=== PATIENT | male | born 1955 | race Caucasian/White ===

== ENCOUNTER 2017-11-21 16:12 | Inpatient (IN) | payer BC ==
[~2017-11-21] VITALS: Ht 182.9 cm; Wt 92.3 kg
--- NOTE | ~2017-11-21 | EC ---
PATIENT:ASHLIE MARSHALL DATE OF SERVICE: 11/21/17 SEX: M MEDICAL RECORD: [id number] DATE OF : [birth year] LOCATION:D.MS [place] AGE OF PATIENT: 62 ADMISSION DATE: 11/21/17 REFERRING PHYSICIAN: INTERPRETING PHYSICIAN: PETRA RIOS MD ECHOCARDIOGRAM REPORT ECHO CHARGES 4 ECHO COMPLETE CLINICAL DIAGNOSIS: PE HX OF ATRIAL FIB/ SEPTAL DEFECT REPAIR X2 ECHOCARDIOGRAPHIC MEASUREMENTS (adult normal given) AC root (d.<3.7cm) 4.6 cm LV Septum d (<1.2 cm> 1.4 cm Valve Excursion 1.8 cm LV Septum (systole) 1.6 cm Left Atria (s.<4.0cm> 4.2 cm LVPW d(<1.2cm) 1.1 cm RV (d.<2.3cm) 6.2 cm LVPW (sytole) 1.5 cm LV diastole(<5.6CM) 5.8 cm MV E-F(>70mm/sec) cm LV systole 4.4 cm LVOT Diameter 2.3 cm MV exc.(>10mm) 1.7 cm Est.ejection fraction (50-75%) % Pericardial Effusion N DOPPLER: LVIT cm/sec A 100 cm/sec E cm/sec LA cm/sec RVSP mmHg LVOT 82 cm/sec AOP1/2T m/s Asc. Ao 96 cm/sec RVOT 95 cm/sec RA cm/sec PA 165 cm/sec AV Gradient Peak 3.66 mmHg AV Mean 1.763mmHg AV Area 3.5 cm MV Gradient Peak 4.67 mmHg MV Mean 2.02 mmHg MV Area cm COMMENTS: Rolling Machine Tender: Radha JAVIER Cumulative Effects Analyst: 1 Dr. Rios TAPE# PACS DATE OF SERVICE: 11/22/2017 Echocardiogram FINDINGS: 1. Left ventricular chamber size is mildly dilated. Left ventricular systolic function is mildly reduced. Overall ejection fraction 40% to 45%. 2. Left atrium is enlarged at 4.2 cm. Right atrium and right ventricle chamber sizes are moderately dilated. 3. Valvular structures have normal structure and motion. ECHOCARDIOGRAM REPORT [id number] ASHLIE MARSHALL 4. Doppler interrogation reveals only mild mitral regurgitation. No other valvular insufficiency or stenosis. 5. No evidence of pericardial effusion or left ventricular thrombus. TRANSINT:[id number] Voice Confirmation ID: [id number] DOCUMENT ID: [id number] PETRA RIOS MD at 1025 CC: [id number] DICTATION DATE: 11/22/17 1258 STAFF READINESS OFFICER: 11/22/17 1328 DIS IN 11/23/17 [place] [id number] [place] [id number]
--- NOTE | ~2017-11-21 | HP ---
PATIENT: ASHLIE CALIX MEDICAL RECORD: [id number] ACCOUNT: [id number] LOCATION:D.MS [address] : [birth year] ADMISSION DATE: 11/21/17 HISTORY AND PHYSICAL EXAMINATION HISTORY OF PRESENT ILLNESS: Mr. Calix is a 62-year-old white male who was seen in the [place] office earlier today complaining of increasing shortness of breath, swelling, cough, has been going on for a couple of weeks. Sent to the Emergency Room for further evaluation. Chest x-ray shows changes compatible with failure, he is in atrial fib, which has been chronic. Has seen Dr. Palomo in the past. He had an elevated D-dimer and CTA reveals pulmonary embolism. He is admitted at this time for PE. He is placed on subQ Lovenox. He has had bilateral leg swelling, left worse than right. PAST MEDICAL HISTORY: Significant for chronic COPD, depression, chronic intermittent atrial fibrillation, tobacco abuse and hypertension. PREVIOUS SURGERIES: Include open heart surgery at age 5 and right hand thumb surgery. ALLERGIES OR INTOLERANCES: None known. HOME MEDICATIONS: Include amlodipine 10 mg a day, sotalol 80 mg b.i.d., lisinopril 20 b.i.d. FAMILY HISTORY: Noncontributory. SOCIAL HISTORY: The patient is single. He works at [employer]. He smokes 1-1/2 to 2 packs per day. Drinks alcohol on a social basis, usually beer. REVIEW OF SYSTEMS: Increasing shortness of breath, swelling, orthopnea over the last few weeks. Denies any palpitations. He denies any nausea or vomiting. No recent significant travel history. He has had some mild weight gain recently, which is probably due to fluid accumulation. Denies any significant weight loss recently. PHYSICAL EXAMINATION: GENERAL: He is in no distress at this time. HEENT: Sclerae nonicteric. Poor dentition. NECK: Soft. HEART: Irregularly irregular with normal rate. LUNGS: With bilateral wheezes. ABDOMEN: Soft. Bilateral edema, left worse than right. NEUROLOGIC: Without any gross focal deficits. IMPRESSION: Pulmonary embolism, chronic atrial fib, congestive heart failure secondary to above, chronic hypertension, tobacco abuse, chronic obstructive pulmonary disease. PLAN: Admit, subQ Lovenox. We will check echo and Dopplers in a.m. We will ask cardiology to see. We will need hematology workup, which can be done as an outpatient. Smoking cessation, we will place a nicotine patch. TRANSINT:[id number] Voice Confirmation ID: [id number] DOCUMENT ID: [id number] HISTORY AND PHYSICAL [id number] ASHLIE CALIX MATTHEW DO at 0849 CC: [id number] DICTATION DATE: 11/21/172154 SUPERVISOR PAINTING DEPARTMENT: 11/21/172226 ADM IN [place] [id number] [place] [id number]
[2017-11-21 17:35] LABS: BASOPHILS 0.2 % (0-2); EOSINOPHILS 0.2 % (0-7); HEMATOCRIT 42.3 % (42.0-54.0); HEMOGLOBIN 14.4 g/dL (13.5-17.5); LYMPHOCYTES 20.5 % (15-50); MEAN PLATELET VOLUME 11.1 fL (7.4-10.4); NEUTROPHILS 63.1 % (40-80); PLATELET COUNT 125 10x3/uL (130-400); RBC 4.65 10x6/uL (4.20-6.10); RDW 14.7 % (11.5-14.5); WBC 4.2 10x3/uL (4.8-10.8)
[2017-11-21 17:49] LABS: ALBUMIN 3.3 g/dL (3.4-5.0); ALKALINE PHOSPHATASE 191 U/L (46-116); ALT (SGPT) 29 U/L (10-68); CALC OSMOLALITY 262 mosm/kg (275-300); CALCIUM 8.6 mg/dL (8.5-10.1); CHLORIDE - SERUM 96 mmol/L (98-107); CREATININE - SERUM 0.8 mg/dL (0.6-1.3); GLUCOSE 97 mg/dL (74-106); POTASSIUM - SERUM 3.6 mmol/L (3.5-5.1); PROTEIN - SERUM 7.3 g/dL (6.4-8.2); SODIUM 132 mmol/L (136-145); UREA NITROGEN 7 mg/dL (7-18); eGFR NON AFRICAN AMERICAN > 90 mL/min (90-120)
[2017-11-21 17:56] LABS: PRO BNP 1894 pg/mL (0-125)
[2017-11-22 00:18] VITALS: BP 153/83; Ht 182.9 cm; Wt 92.3 kg
[2017-11-22 04:48] VITALS: BP 139/80
[2017-11-22 05:46] LABS: BASOPHILS 0.2 % (0-2); EOSINOPHILS 0.2 % (0-7); HEMOGLOBIN 14.2 g/dL (13.5-17.5); IMMATURE GRANULOCYTES 0.2 % (0-5); LYMPHOCYTES 27.3 % (15-50); MCHC 33.8 g/dL (31.0-37.0); MCV 91.7 fL (80.0-100.0); MEAN PLATELET VOLUME 11.2 fL (7.4-10.4); MONOCYTES 16.2 % (2-11); NEUTROPHILS 55.9 % (40-80); PLATELET COUNT 123 10x3/uL (130-400); RBC 4.58 10x6/uL (4.20-6.10); RDW 14.9 % (11.5-14.5); WBC 4.1 10x3/uL (4.8-10.8)
[2017-11-22 06:06] LABS: CALCIUM 8.5 mg/dL (8.5-10.1); CHLORIDE - SERUM 97 mmol/L (98-107); GLUCOSE 91 mg/dL (74-106); SODIUM 133 mmol/L (136-145); eGFR NON AFRICAN AMERICAN 80 mL/min (90-120)
[2017-11-22 06:09] LABS: CALC OSMOLALITY 264 mosm/kg (275-300); POTASSIUM - SERUM 4.4 mmol/L (3.5-5.1); UREA NITROGEN 11 mg/dL (7-18)
[2017-11-22 08:43] VITALS: BP 150/75
[2017-11-22 12:45] VITALS: BP 147/91
[2017-11-22] MEDS ORDERED: PRINIVIL20 MG PO (19:31)
[2017-11-22] MEDS ORDERED: DOXYCYCLINE HY100 M2 PO (19:32)
[2017-11-22] MEDS ORDERED: NORVASC10 MG PO (19:33)
[2017-11-22] MEDS ORDERED: BETAPACE 80 MG80 MG PO (19:35)
[2017-11-22 21:30] VITALS: BP 139/86
[2017-11-23 01:13] VITALS: BP 138/79
[2017-11-23 05:25] VITALS: BP 122/77
[2017-11-23 07:58] VITALS: BP 139/80
[2017-11-23 10:59] LABS: BASOPHILS 0.2 % (0-2); EOSINOPHILS 1.2 % (0-7); HEMATOCRIT 41.5 % (42.0-54.0); HEMOGLOBIN 14.1 g/dL (13.5-17.5); LYMPHOCYTES 31.1 % (15-50); MCH 30.8 pg (26.0-34.0); MCV 90.6 fL (80.0-100.0); MONOCYTES 14.1 % (2-11); NEUTROPHILS 53.4 % (40-80); PLATELET COUNT 119 10x3/uL (130-400); RBC 4.58 10x6/uL (4.20-6.10); RDW 14.8 % (11.5-14.5); WBC 4.1 10x3/uL (4.8-10.8)
[2017-11-23 11:12] LABS: ALBUMIN 2.8 g/dL (3.4-5.0); ALKALINE PHOSPHATASE 176 U/L (46-116); ALT (SGPT) 24 U/L (10-68); BILIRUBIN - TOTAL 0.66 mg/dL (0.2-1.3); CALC OSMOLALITY 266 mosm/kg (275-300); CARBON DIOXIDE 28.8 mmol/L (21.0-32.0); CHLORIDE - SERUM 97 mmol/L (98-107); GLUCOSE 94 mg/dL (74-106); PROTEIN - SERUM 6.9 g/dL (6.4-8.2); SODIUM 134 mmol/L (136-145); UREA NITROGEN 11 mg/dL (7-18); eGFR NON AFRICAN AMERICAN 80 mL/min (90-120)
[2017-11-23 11:13] LABS: POTASSIUM - SERUM 3.1 mmol/L (3.5-5.1)
[2017-11-23 12:26] VITALS: BP 135/81
[2017-11-23] MEDS ORDERED: NICODERM C1 PATCH .1 TRANSDERM (13:11)
[2017-11-23] MEDS ORDERED: FLORAJEN3 CAPS460 MG PO (13:12)
[2017-11-23] MEDS ORDERED: ELIQUIS5 MG PO (13:12)
[2017-11-23] MEDS ORDERED: CHANTIX0.5 MG PO (13:13)
[2017-11-23] MEDS ORDERED: LEVAQUIN750 MG PO (13:13)
== END 2017-11-23 16:37 | disposition home or self-care (01) | DRG 175 ==
LOC: D.ER 16:12 → D.MS 21:40
PROVIDERS: Family Medicine; Physician Assistant
DX: I26.99 Other pulmonary embolism without acute cor pulmonale (principal); J18.1 Lobar pneumonia, unspecified organism; J44.0 Chronic obstructive pulmonary disease with (acute) lower respiratory infection; F17.203 Nicotine dependence unspecified, with withdrawal; E87.1 Hypo-osmolality and hyponatremia; I50.20 Unspecified systolic (congestive) heart failure; I48.0 Paroxysmal atrial fibrillation; R60.9 Edema, unspecified; F32.9 Major depressive disorder, single episode, unspecified

== ENCOUNTER 2018-01-24 17:23 | Inpatient (IN) | payer BC ==
[~2018-01-24] VITALS: Ht 182.9 cm; Wt 92.8 kg
--- NOTE | ~2018-01-24 | EC ---
PATIENT:ASHLIE MARSHALL DATE OF SERVICE: 01/24/18 SEX: M MEDICAL RECORD: [id number] DATE OF : [birth year] LOCATION:D.M2 D.213 AGE OF PATIENT: 62 ADMISSION DATE: 01/24/18 REFERRING PHYSICIAN: INTERPRETING PHYSICIAN: PETRA RIOS MD ECHOCARDIOGRAM REPORT ECHO CHARGES 4 ECHO COMPLETE Date: CLINICAL DIAGNOSIS: CHF ECHOCARDIOGRAPHIC MEASUREMENTS (adult normal given) AC root (d.<3.7cm) 3.7 cm LV Septum d (<1.2 cm> 1.4 cm Valve Excursion 2.7 cm LV Septum (systole) 2.2 cm Left Atria (s.<4.0cm> 5.7 cm LVPW d(<1.2cm) 1.4 cm RV (d.<2.3cm) 3.9 cm LVPW (sytole) 2.2 cm LV diastole(<5.6CM) 5.1 cm MV E-F(>70mm/sec) cm LV systole 3.0 cm LVOT Diameter 2.5 cm MV exc.(>10mm) cm Est.ejection fraction (50-75%) % DOPPLER: LVIT cm/sec A 46.0 cm/sec E 107 cm/sec LA cm/sec RVSP 52.0 mmHg LVOT 83.0 cm/sec AOP1/2T m/s Asc. Ao 84.0 cm/sec RVOT 57.0 cm/sec RA cm/sec PA 170 cm/sec AV Gradient Peak 2.8 mmHg AV Mean 1.5 mmHg AV Area 4.5 cm MV Gradient Peak 4.7 mmHg MV Mean 2.2 mmHg MV Area cm COMMENTS: Street Commissioner: 1 LOLA MONTANADSOE Launch Manager: 1 Dr. Rios TAPE# PACS Pericardial Effusion N DATE OF SERVICE: FINDINGS: 1. Left ventricular chamber size is within normal limits. Left ventricular systolic function is mildly reduced. Overall ejection fraction 40%. 2. Left atrium is markedly enlarged at 5.7 cm. Right atrium and right ventricular chamber sizes are as well severely dilated. 3. Valvular structures have normal structure and motion. 4. Doppler interrogation reveals mild aortic insufficiency, moderate tricuspid regurgitation. No other valvular insufficiency or stenosis, but pulmonary ECHOCARDIOGRAM REPORT [id number] ASHLIE MARSHALL systolic pressure is elevated estimated at 52 mmHg. 5. No evidence of pericardial effusion or left ventricular thrombus. TRANSINT:[id number] Voice Confirmation ID: [id number] DOCUMENT ID: [id number] PETRA RIOS MD at 1056 CC: [id number] DICTATION DATE: 01/25/18 161 FISHER SEAL: 01/25/18 1627 DIS IN 01/29/18 [place] [id number] [place] [id number]
--- NOTE | ~2018-01-24 | HP ---
PATIENT: ASHLIE MARSHALL MEDICAL RECORD: [id number] ACCOUNT: [id number] LOCATION:[address] : [birth year] ADMISSION DATE: 01/24/18 HISTORY AND PHYSICAL EXAMINATION HISTORY OF PRESENT ILLNESS: Mr. Marshall is a 62-year-old white male that presents to the clinic with increasing edema and developing anasarca. He has a known history of heart failure and atrial fib, recently hospitalized a little over month ago for similar type symptoms. He was recently seen in the office and spironolactone was added, but he has failed to improve. Now, has anasarca to the lower abdomen, he is experiencing orthopnea. He is not having any chest pain, but marked dyspnea on exertion. He is admitted at this time for IV diuresis and we will ask his chain offbearer to see him. 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 He also recently diagnosed with a pulmonary embolism and is on anticoagulation. He has a known history of heart disease, hypertension, and tobacco abuse. PAST SURGICAL HISTORY: As above. ALLERGIES: None known. HOME MEDICATIONS: Include amlodipine 10 mg a day, furosemide 20 mg a day, lisinopril 20 mg b.i.d., metoprolol 25 b.i.d., sotalol 80 twice a day, spironolactone 20 twice a day, and Xarelto 20 p.o. daily. FAMILY HISTORY: Significant for cancer, hypertension, and cardiac disease. SOCIAL HISTORY: The patient is a tobacco user. REVIEW OF SYSTEMS: No fever. He has had progressive weight gain, increasing dyspnea with orthopnea, and edema extending up to the lower abdomen. PHYSICAL EXAMINATION: GENERAL: He is in no acute distress, but obviously minimally to moderately ill in appearance. HEART: Irregular regular with II/ murmur. LUNGS: With fine rales in the bases. ABDOMEN: Lower abdomen; revealed anasarca to the lower abdomen. Liver and spleen are not enlarged. He has 4+ edema, which extends up into the scrotum and lower abdomen. NEUROLOGIC: Without any gross focal deficits. IMPRESSION: Congestive heart failure, edema/anasarca. PLAN: Admit. Laney guzmán. Daily BMP. Cardiology consult. See orders for rest of plan. TRANSINT:[id number] Voice Confirmation ID: [id number] DOCUMENT ID: [id number] HISTORY AND PHYSICAL [id number] ASHLIE MARSHALL MATTHEW DO at 1228 CC: [id number] DICTATION DATE: 01/25/18924 JAVA XML DEVELOPER: 01/25/18 1012 DIS IN 01/29/18 [place] [id number] [place] [id number]
[~2018-01-24 17:23] MED LIST: BETAPACE 80 MG80 MG PO; CHANTIX0.5 MG PO; DOXYCYCLINE HY100 M2 PO; ELIQUIS5 MG PO; FLORAJEN3 CAPS460 MG PO; LEVAQUIN750 MG PO; NICODERM C1 PATCH .1 TRANSDERM; NORVASC10 MG PO; PRINIVIL20 MG PO
[2018-01-24 19:49] LABS: BASOPHILS 0.5 % (0-2); EOSINOPHILS 1.4 % (0-7); HEMOGLOBIN 13.5 g/dL (13.5-17.5); IMMATURE GRANULOCYTES 0.2 % (0-5); LYMPHOCYTES 22.1 % (15-50); MCH 30.7 pg (26.0-34.0); MCHC 34.6 g/dL (31.0-37.0); MCV 88.6 fL (80.0-100.0); MEAN PLATELET VOLUME 10.1 fL (7.4-10.4); MONOCYTES 13.2 % (2-11); NEUTROPHILS 62.6 % (40-80); RDW 15.7 % (11.5-14.5); WBC 6.6 10x3/uL (4.8-10.8)
[2018-01-24 19:52] LABS: PLATELET COUNT 236 10x3/uL (130-400)
[2018-01-24 19:56] LABS: ALBUMIN 3.2 g/dL (3.4-5.0); ALKALINE PHOSPHATASE 172 U/L (46-116); ALT (SGPT) 14 U/L (10-68); BILIRUBIN - TOTAL 1.36 mg/dL (0.2-1.3); CALC OSMOLALITY 259 mosm/kg (275-300); CALCIUM 8.6 mg/dL (8.5-10.1); CARBON DIOXIDE 25.3 mmol/L (21.0-32.0); CHLORIDE - SERUM 94 mmol/L (98-107); CKMB 0.5 U/L (0.0-3.6); CREATINE KINASE 24 UL (21-232); CREATININE - SERUM 0.9 mg/dL (0.6-1.3); GLUCOSE 90 mg/dL (74-106); MAGNESIUM - SERUM 1.9 mg/dL (1.8-2.4); POTASSIUM - SERUM 4.4 mmol/L (3.5-5.1); PRO BNP 1067 pg/mL (0-125); SODIUM 130 mmol/L (136-145); UREA NITROGEN 10 mg/dL (7-18); eGFR NON AFRICAN AMERICAN > 90 mL/min (90-120)
[2018-01-24 20:06] LABS: TROPONIN-I < 0.017 ng/mL (0.000-0.060)
[2018-01-25 03:27] VITALS: BP 133/66; BMI 31.8
[2018-01-25 05:18] VITALS: BP 131/68
[2018-01-25 06:26] LABS: CALC OSMOLALITY 252 mosm/kg (275-300); CALCIUM 8.5 mg/dL (8.5-10.1); CARBON DIOXIDE 25.3 mmol/L (21.0-32.0); CHLORIDE - SERUM 95 mmol/L (98-107); CREATININE - SERUM 0.9 mg/dL (0.6-1.3); GLUCOSE 84 mg/dL (74-106); POTASSIUM - SERUM 4.2 mmol/L (3.5-5.1); SODIUM 127 mmol/L (136-145); UREA NITROGEN 11 mg/dL (7-18); eGFR NON AFRICAN AMERICAN > 90 mL/min (90-120)
[2018-01-25 10:52] VITALS: BP 119/63
[2018-01-25 13:23] VITALS: BP 120/60
[2018-01-25 14:08] VITALS: Ht 182.9 cm; Wt 92.8 kg
[2018-01-25] MEDS ORDERED: FUROSEMIDE20 MG PO (14:43)
[2018-01-25] MEDS ORDERED: XARELTO20 MG PO (14:44)
[2018-01-25] MEDS ORDERED: LOPRESSOR25 MG PO (14:46)
[2018-01-25 16:25] VITALS: BP 133/69
[2018-01-25 20:00] VITALS: BP 124/72
[2018-01-26 04:00] VITALS: BP 134/77
[2018-01-26 05:44] LABS: BASOPHILS 0.4 % (0-2); EOSINOPHILS 1.3 % (0-7); HEMATOCRIT 36.8 % (42.0-54.0); HEMOGLOBIN 12.8 g/dL (13.5-17.5); IMMATURE GRANULOCYTES 0.2 % (0-5); LYMPHOCYTES 22.1 % (15-50); MCH 30.3 pg (26.0-34.0); MCHC 34.8 g/dL (31.0-37.0); MCV 87.2 fL (80.0-100.0); MEAN PLATELET VOLUME 9.7 fL (7.4-10.4); MONOCYTES 15.3 % (2-11); NEUTROPHILS 60.7 % (40-80); RBC 4.22 10x6/uL (4.20-6.10); RDW 15.4 % (11.5-14.5)
[2018-01-26 06:07] LABS: PLATELET COUNT 184 10x3/uL (130-400); WBC 4.6 10x3/uL (4.8-10.8)
[2018-01-26 06:15] LABS: CALCIUM 8.6 mg/dL (8.5-10.1); CARBON DIOXIDE 27.8 mmol/L (21.0-32.0); CREATININE - SERUM 1.1 mg/dL (0.6-1.3); POTASSIUM - SERUM 3.8 mmol/L (3.5-5.1)
[2018-01-26 07:59] LABS: APPEARANCE CLEAR (CLEAR); BILIRUBIN NEGATIVE (NEGATIVE); COLOR STRAW (YELLOW); GLUCOSE NEGATIVE (NEGATIVE); KETONE NEGATIVE (NEGATIVE); NITRITE NEGATIVE (NEGATIVE); PROTEIN NEGATIVE (NEGATIVE); UROBILINOGEN NORMAL (NORMAL)
[2018-01-26 08:34] VITALS: BP 152/84
[2018-01-26 11:52] VITALS: BP 113/66
[2018-01-26 16:17] VITALS: BP 132/70
[2018-01-26 20:00] VITALS: BP 138/59
[2018-01-27] VITALS: BP 140/66
[2018-01-27 04:00] VITALS: BP 143/85
[2018-01-27 05:42] LABS: BASOPHILS 0.5 % (0-2); EOSINOPHILS 1.4 % (0-7); HEMATOCRIT 36.7 % (42.0-54.0); HEMOGLOBIN 12.8 g/dL (13.5-17.5); LYMPHOCYTES 26.7 % (15-50); MCH 30.5 pg (26.0-34.0); MCHC 34.9 g/dL (31.0-37.0); MCV 87.6 fL (80.0-100.0); MEAN PLATELET VOLUME 9.7 fL (7.4-10.4); MONOCYTES 16.5 % (2-11); NEUTROPHILS 54.9 % (40-80); PLATELET COUNT 183 10x3/uL (130-400); RBC 4.19 10x6/uL (4.20-6.10); RDW 15.5 % (11.5-14.5); WBC 4.3 10x3/uL (4.8-10.8)
[2018-01-27 06:03] LABS: ANION GAP 13.7 mmol/L (8-16); CALCIUM 8.8 mg/dL (8.5-10.1); CARBON DIOXIDE 29.7 mmol/L (21.0-32.0); CREATININE - SERUM 1.2 mg/dL (0.6-1.3); POTASSIUM - SERUM 3.4 mmol/L (3.5-5.1)
[2018-01-27 07:53] VITALS: BP 122/69
[2018-01-27 11:00] VITALS: BP 116/53
[2018-01-27 16:18] VITALS: BP 119/65
[2018-01-27 21:05] VITALS: BP 129/62
[2018-01-28 01:47] VITALS: BP 117/65
[2018-01-28 05:20] VITALS: BP 115/64
[2018-01-28 05:42] LABS: BASOPHILS 0.4 % (0-2); HEMATOCRIT 36.3 % (42.0-54.0); HEMOGLOBIN 12.5 g/dL (13.5-17.5); LYMPHOCYTES 23.5 % (15-50); MCHC 34.4 g/dL (31.0-37.0); MCV 87.3 fL (80.0-100.0); MEAN PLATELET VOLUME 9.7 fL (7.4-10.4); MONOCYTES 15.9 % (2-11); NEUTROPHILS 58.2 % (40-80); PLATELET COUNT 184 10x3/uL (130-400); RBC 4.16 10x6/uL (4.20-6.10); RDW 15.2 % (11.5-14.5); WBC 4.5 10x3/uL (4.8-10.8)
[2018-01-28 05:56] LABS: ANION GAP 11.1 mmol/L (8-16); CALCIUM 8.6 mg/dL (8.5-10.1); CARBON DIOXIDE 32.3 mmol/L (21.0-32.0); CREATININE - SERUM 1.1 mg/dL (0.6-1.3); POTASSIUM - SERUM 3.4 mmol/L (3.5-5.1)
[2018-01-28 07:34] VITALS: BP 126/58
[2018-01-28 11:00] VITALS: BP 122/61
[2018-01-28 15:13] VITALS: BP 131/66
[2018-01-28 20:00] VITALS: BP 114/54
[2018-01-29 04:00] VITALS: BP 128/76
[2018-01-29 06:01] LABS: BASOPHILS 0.5 % (0-2); EOSINOPHILS 2.3 % (0-7); HEMATOCRIT 37.3 % (42.0-54.0); HEMOGLOBIN 12.8 g/dL (13.5-17.5); LYMPHOCYTES 24.4 % (15-50); MCH 30.3 pg (26.0-34.0); MCHC 34.3 g/dL (31.0-37.0); MCV 88.4 fL (80.0-100.0); MEAN PLATELET VOLUME 9.4 fL (7.4-10.4); MONOCYTES 21.9 % (2-11); NEUTROPHILS 50.9 % (40-80); PLATELET COUNT 179 10x3/uL (130-400); RBC 4.22 10x6/uL (4.20-6.10); RDW 15.4 % (11.5-14.5); WBC 4.4 10x3/uL (4.8-10.8)
[2018-01-29 06:08] LABS: CALCIUM 8.6 mg/dL (8.5-10.1); CARBON DIOXIDE 33.8 mmol/L (21.0-32.0); CREATININE - SERUM 1.3 mg/dL (0.6-1.3); POTASSIUM - SERUM 3.8 mmol/L (3.5-5.1)
[2018-01-29 07:35] VITALS: BP 129/77
[2018-01-29] MEDS ORDERED: BUMEX2 MG PO (10:16)
[2018-01-29] MEDS ORDERED: ALDACTONE25 MG PO (10:16)
[2018-01-29 11:16] VITALS: BP 130/56
== END 2018-01-29 18:10 | disposition home or self-care (01) | DRG 292 ==
LOC: D.M2 17:23
PROVIDERS: Family Medicine; Internal Medicine Nephrology
DX: I11.0 Hypertensive heart disease with heart failure (principal); E87.1 Hypo-osmolality and hyponatremia; F17.203 Nicotine dependence unspecified, with withdrawal; I50.43 Acute on chronic combined systolic (congestive) and diastolic (congestive) heart failure; I48.0 Paroxysmal atrial fibrillation; Z79.01 Long term (current) use of anticoagulants; Z86.711 Personal history of pulmonary embolism; E78.5 Hyperlipidemia, unspecified; E11.9 Type 2 diabetes mellitus without complications; R74.8 Abnormal levels of other serum enzymes

== ENCOUNTER 2018-03-12 11:47 | Emergency (ER) | payer BC ==
[2018-01-25 14:08] VITALS: BMI 31.7
[~2018-03-12 11:47] MED LIST changes: +ALDACTONE25 MG PO; +BUMEX2 MG PO; +FUROSEMIDE20 MG PO; +LOPRESSOR25 MG PO; +XARELTO20 MG PO
[2018-03-12 12:20] LABS: BASOPHILS 0.5 % (0-2); EOSINOPHILS 1.8 % (0-7); HEMATOCRIT 36.7 % (42.0-54.0); IMMATURE GRANULOCYTES 0.2 % (0-5); LYMPHOCYTES 24.4 % (15-50); MCH 30.8 pg (26.0-34.0); MCHC 35.4 g/dL (31.0-37.0); MEAN PLATELET VOLUME 9.4 fL (7.4-10.4); MONOCYTES 15.3 % (2-11); NEUTROPHILS 57.8 % (40-80); PLATELET COUNT 208 10x3/uL (130-400); RBC 4.22 10x6/uL (4.20-6.10); RDW 15.9 % (11.5-14.5); WBC 6.2 10x3/uL (4.8-10.8)
[2018-03-12 12:37] LABS: ALBUMIN 3.3 g/dL (3.4-5.0); ALKALINE PHOSPHATASE 158 U/L (46-116); ALT (SGPT) 15 U/L (10-68); CALC OSMOLALITY 259 mosm/kg (275-300); CALCIUM 8.7 mg/dL (8.5-10.1); CARBON DIOXIDE 25.1 mmol/L (21.0-32.0); CHLORIDE - SERUM 96 mmol/L (98-107); GLUCOSE 99 mg/dL (74-106); PROTEIN - SERUM 8.1 g/dL (6.4-8.2); SODIUM 129 mmol/L (136-145); UREA NITROGEN 15 mg/dL (7-18); eGFR NON AFRICAN AMERICAN 80 mL/min (90-120)
[2018-03-12 12:49] LABS: CKMB 0.4 U/L (0.0-3.6); CREATINE KINASE 35 UL (21-232)
[2018-03-12 12:50] LABS: TROPONIN-I < 0.017 ng/mL (0.000-0.060)
== END 2018-03-12 16:12 | disposition home or self-care (01) ==
LOC: D.ER 11:47
PROVIDERS: Family Medicine
DX: J81.0 Acute pulmonary edema (principal); I50.9 Heart failure, unspecified; E11.9 Type 2 diabetes mellitus without complications; I48.91 Unspecified atrial fibrillation; I45.10 Unspecified right bundle-branch block

== ENCOUNTER 2018-03-29 12:03 | Inpatient (IN) | payer BC ==
[~2018-03-29] VITALS: Ht 182.9 cm; Wt 94.5 kg
--- NOTE | ~2018-03-29 | EC ---
PATIENT:ASHLIE MARSHALL DATE OF SERVICE: 03/29/18 SEX: M MEDICAL RECORD: [id number] DATE OF : 53 LOCATION:D.M2 D.211 AGE OF PATIENT: 62 ADMISSION DATE: 03/29/18 REFERRING PHYSICIAN: INTERPRETING PHYSICIAN: PETRA RIOS MD ECHOCARDIOGRAM REPORT ECHO CHARGES 5 ECHO LIMITED Date: 04/02 1 DOPPLER ECHO COLOR FLOW 2 DOPPLER ECHO PULSE CLINICAL DIAGNOSIS: CHF ECHOCARDIOGRAPHIC MEASUREMENTS (adult normal given) AC root (d.<3.7cm) 0 cm LV Septum d (<1.2 cm> 0 cm Valve Excursion 0 cm LV Septum (systole) 0 cm Left Atria (s.<4.0cm> 0 cm LVPW d(<1.2cm) 0 cm RV (d.<2.3cm) 0 cm LVPW (sytole) 0 cm LV diastole(<5.6CM) 0 cm MV E-F(>70mm/sec) 0 cm LV systole 0 cm LVOT Diameter 0 cm MV exc.(>10mm) 0 cm Est.ejection fraction (50-75%) % DOPPLER: LVIT cm/sec A 0 cm/sec E 0 cm/sec LA 0 cm/sec RVSP 46.2 mmHg LVOT 0 cm/sec AOP1/2T 0 m/s Asc. Ao 0 cm/sec RVOT 0 cm/sec RA 0 cm/sec PA 0 cm/sec AV Gradient Peak 0 mmHg AV Mean 0 mmHg AV Area 0 cm MV Gradient Peak 0 mmHg MV Mean 0 mmHg MV Area 0 cm COMMENTS: LIMITED STUDY (2-D,COLOR,DOPPLER) COMPLETE ECHO DONE ON 03/30/18 Blindstitch Machine Operator: Juanjo LARAOE Desktop Analyst: 1 Dr. Rios TAPE# PACS Pericardial Effusion N DATE OF SERVICE: 04/02/2018 Limited echo for ejection fraction. FINDINGS: Left ventricular chamber size is within normal limits. Left ventricular systolic function is mildly reduced, overall ejection fraction 40% to 45%. This is unchanged from previous echocardiogram. TRANSINT:[id number] Voice Confirmation ID: [id number] DOCUMENT ID: [id number] ECHOCARDIOGRAM REPORT [id number] ROLANDOASHLIE PETRA RIOS MD at 5133 CC: [id number] DICTATION DATE: 04/03/18 1013 EVP MANAGING DIRECTOR: 04/03/18 1212 DIS IN 04/06/18 [place] [id number] [place] [id number]
--- NOTE | ~2018-03-29 | CN ---
PATIENT NAME:AHSLIE MARSHALL MEDICAL RECORD: [id number] : 53 LOCATION:. D.2118 ADMIT DATE: 03/29/18 ACCOUNT: [id number] CONSULTING PHYSICIAN: PETRA IRVIN MD REFERRING PHYSICIAN: LYNETTE HARRIS DO DATE OF CONSULTATION: 04/02/2018 ADMITTING DIAGNOSES: 1. Congestive heart failure, chronic systolic dysfunction, chronic diastolic dysfunction. 2. Atrial fibrillation. 3. Hypertension. 4. Xarelto anticoagulation. HISTORY OF PRESENT ILLNESS: Mr. Valera has a history of a mild cardiomyopathy with ejection fraction in the 40% range along with diastolic dysfunction, who presents with anasarca and fluid overload. He is on a Lasix drip. He had presented approximately a month and a half ago with similar. He was placed on dobutamine and Lasix and had a good diuresis. He has a history of atrial fibrillation. He is rate controlled with sotalol, but the atrial fibrillation appears to be chronic at this point. He also has hypertension for which he is on lisinopril. He is currently with a systolic blood pressure in the 100-110 range, heart rate in the 70 range with atrial fibrillation. Creatinine is 1.1. BNP is elevated at 2600. PHYSICAL EXAMINATION: GENERAL APPEARANCE: Well-nourished, well-developed, appears stated age. Level of distress, comfortable. PSYCHIATRIC: Mental status, alert, normal affect. Orientation, oriented to time, place and person. EYES: Lids and conjunctiva, noninjected. No discharge, no pallor. ENT: Lips, teeth, gums, normal dentition. Oropharynx, no cyanosis, no pallor. NECK: Carotid arteries, bilateral normal upstroke, no bruits, no thrills. JUGULAR VEINS: No jugular venous pressure or distention. CERVICAL LYMPH NODES: Nontender, nonenlarged. THYROID: Not enlarged. Nontender. No nodules. LUNGS: Respiratory effort, unlabored. CHEST: Normal curvature. No thoracic deformity. No chest wall tenderness. Percussion, resonant. Auscultation, clear. No wheezes, no rales, no rhonchi. CARDIOVASCULAR: Precordial exam, nondisplaced. No heaves or pericardial thrills. Rate and rhythm, regular. Heart sounds, normal S1, normal S2. No S3, no gallop, no rub. Systolic murmur, not heard. Diastolic murmur, not heard. EXTREMITIES: No cyanosis, no edema. Peripheral pulses, full and equal in all extremities, except as noted. No bruits appreciated. ABDOMEN: Soft, nondistended. Normal aorta. No bruit. Nontender. No masses. Liver, nontender, no hepatomegaly. Spleen, nontender, no splenomegaly. MUSCULOSKELETAL: No joint tenderness. No joint swelling. No erythema. NEUROLOGICAL: Normal gait, normal strength, normal tone. SKIN: Warm and dry. OVERALL IMPRESSION: Anasarca, fluid overload, chronic systolic dysfunction as well as diastolic dysfunction. We will place him back on dobutamine as this has worked in the past in conjunction with the Lasix drip and we will follow along with you. CONSULT REPORT [id number] ASHLIE MARSHALL TRANSINT:[id number] Voice Confirmation ID: [id number] DOCUMENT ID: [id number] PETRA IRVIN MD at 1403 CC: [id number] DICTATION DATE: 04/02/18 1102 LEAD NITRATE PROCESSOR: 04/02/18 1512 DIS IN 04/06/18 [facility] [address] [place] [address]
--- NOTE | ~2018-03-29 | EC ---
PATIENT:ASHLIE MARSHALL DATE OF SERVICE: 03/29/18 SEX: M MEDICAL RECORD: [id number] DATE OF : 53 LOCATION:D.M2 D.211 AGE OF PATIENT: 62 ADMISSION DATE: 03/29/18 REFERRING PHYSICIAN: INTERPRETING PHYSICIAN: PETRA RIOS MD ECHOCARDIOGRAM REPORT ECHO CHARGES 4 ECHO COMPLETE Date: 03/30 CLINICAL DIAGNOSIS: DYSPNEA/ANASARCA, HX CAD/CABG ECHOCARDIOGRAPHIC MEASUREMENTS (adult normal given) AC root (d.<3.7cm) 5.1 cm LV Septum d (<1.2 cm> 1.5 cm Valve Excursion 2.6 cm LV Septum (systole) 1.9 cm Left Atria (s.<4.0cm> 5.1 cm LVPW d(<1.2cm) 1.9 cm RV (d.<2.3cm) 7.1 cm LVPW (sytole) 2.0 cm LV diastole(<5.6CM) 5.9 cm MV E-F(>70mm/sec) cm LV systole 4.3 cm LVOT Diameter 2.4 cm MV exc.(>10mm) cm Est.ejection fraction (50-75%) % DOPPLER: LVIT cm/sec A 52.0 cm/sec E 112 cm/sec LA cm/sec RVSP 45 mmHg LVOT 82 cm/sec AOP1/2T m/s Asc. Ao 106 cm/sec RVOT cm/sec RA cm/sec PA 189 cm/sec AV Gradient Peak 4.49 mmHg AV Mean 2.40 mmHg AV Area 3.6 cm MV Gradient Peak 9.24 mmHg MV Mean 3.09 mmHg MV Area cm COMMENTS: Electronic Funds Transfer Coordinator: Radha JAVIER Skoog Patching Machine Operator: 1 Dr. Rios TAPE# Pericardial Effusion N DATE OF SERVICE: 03/30/2018 PROCEDURE: Echocardiogram. FINDINGS: 1. Left ventricular chamber size is within normal limits. Left ventricular systolic function is normal. Overall ejection fraction estimated at 60%. 2. Left atrium, right atrium, and right ventricle chamber sizes are dilated. Left atrium measures 5.1 cm. 3. Valvular structures have normal structure and motion. ECHOCARDIOGRAM REPORT [id number] ASHLIE MARSHALL 4. Doppler interrogation reveals mild to moderate aortic insufficiency, moderate tricuspid regurgitation, no other valvular insufficiency or stenosis. Pulmonary systolic pressure is estimated at 45 mmHg. 5. No evidence of pericardial effusion or left ventricular thrombus. TRANSINT:[id number] Voice Confirmation ID: [id number] DOCUMENT ID: [id number] PETRA RIOS MD at 0847 CC: [id number] DICTATION DATE: 03/30/18 1248 PENCILLER: 03/30/18 1254 ADM IN [facility] [address] [place] [address]
[2018-03-29] MEDS ORDERED: FUROSEMIDE40 MG PO (14:55)
[2018-03-29 15:04] VITALS: BP 133/76; BMI 31.8
[2018-03-29] MEDS ORDERED: K-DUR20 MEQ PO (15:19)
[2018-03-29] MEDS ORDERED: LOPRESSOR25 MG PO (15:19)
[2018-03-29] MEDS ORDERED: NORVASC10 MG PO (15:19)
[2018-03-29 15:46] VITALS: BP 133/76
[2018-03-29 16:38] LABS: BASOPHILS 0.5 % (0-2); EOSINOPHILS 2.6 % (0-7); HEMATOCRIT 37.3 % (42.0-54.0); HEMOGLOBIN 13.1 g/dL (13.5-17.5); IMMATURE GRANULOCYTES 0.2 % (0-5); MCH 30.5 pg (26.0-34.0); MCHC 35.1 g/dL (31.0-37.0); MCV 86.9 fL (80.0-100.0); MEAN PLATELET VOLUME 9.7 fL (7.4-10.4); MONOCYTES 13.9 % (2-11); NEUTROPHILS 56.8 % (40-80); PLATELET COUNT 220 10x3/uL (130-400); RBC 4.29 10x6/uL (4.20-6.10); RDW 15.5 % (11.5-14.5); WBC 6.6 10x3/uL (4.8-10.8)
[2018-03-29 17:17] LABS: ALBUMIN 3.3 g/dL (3.4-5.0); ALKALINE PHOSPHATASE 147 U/L (46-116); ALT (SGPT) 11 U/L (10-68); BILIRUBIN - TOTAL 1.08 mg/dL (0.2-1.3); CALC OSMOLALITY 269 mosm/kg (275-300); CALCIUM 8.9 mg/dL (8.5-10.1); CHLORIDE - SERUM 99 mmol/L (98-107); CKMB 0.5 U/L (0.0-3.6); CREATINE KINASE 39 UL (21-232); CREATININE - SERUM 1.1 mg/dL (0.6-1.3); GLUCOSE 89 mg/dL (74-106); POTASSIUM - SERUM 4.2 mmol/L (3.5-5.1); PRO BNP 1583 pg/mL (0-125); PROTEIN - SERUM 8.2 g/dL (6.4-8.2); SODIUM 134 mmol/L (136-145); TROPONIN-I < 0.017 ng/mL (0.000-0.060); UREA NITROGEN 20 mg/dL (7-18); eGFR NON AFRICAN AMERICAN 72 mL/min (90-120)
[2018-03-29 17:32] LABS: CKMB 0.5 U/L (0.0-3.6); CREATINE KINASE 38 UL (21-232)
[2018-03-29 17:35] LABS: TROPONIN-I < 0.017 ng/mL (0.000-0.060)
[2018-03-29 19:43] VITALS: BP 116/65
[2018-03-29 20:21] LABS: APPEARANCE CLEAR (CLEAR); BILIRUBIN NEGATIVE (NEGATIVE); COLOR YELLOW (YELLOW); GLUCOSE NEGATIVE (NEGATIVE); KETONE NEGATIVE (NEGATIVE); NITRITE NEGATIVE (NEGATIVE); PROTEIN NEGATIVE (NEGATIVE); UROBILINOGEN NORMAL (NORMAL)
[2018-03-29 23:10] LABS: CKMB 0.6 U/L (0.0-3.6); CREATINE KINASE 38 UL (21-232); TROPONIN-I < 0.017 ng/mL (0.000-0.060)
[2018-03-30 00:51] VITALS: BP 124/60
[2018-03-30 04:53] VITALS: BP 109/70
[2018-03-30 06:38] LABS: BASOPHILS 0.4 % (0-2); EOSINOPHILS 2.9 % (0-7); HEMATOCRIT 36.1 % (42.0-54.0); HEMOGLOBIN 12.6 g/dL (13.5-17.5); IMMATURE GRANULOCYTES 0.2 % (0-5); LYMPHOCYTES 24.8 % (15-50); MCH 30.4 pg (26.0-34.0); MCHC 34.9 g/dL (31.0-37.0); MCV 87.2 fL (80.0-100.0); MEAN PLATELET VOLUME 9.8 fL (7.4-10.4); MONOCYTES 15.3 % (2-11); NEUTROPHILS 56.4 % (40-80); PLATELET COUNT 229 10x3/uL (130-400); RBC 4.14 10x6/uL (4.20-6.10); RDW 15.7 % (11.5-14.5); WBC 5.2 10x3/uL (4.8-10.8)
[2018-03-30 07:14] LABS: ALBUMIN 3.1 g/dL (3.4-5.0); ALKALINE PHOSPHATASE 139 U/L (46-116); ALT (SGPT) 11 U/L (10-68); BILIRUBIN - TOTAL 0.95 mg/dL (0.2-1.3); CALC OSMOLALITY 270 mosm/kg (275-300); CALCIUM 8.8 mg/dL (8.5-10.1); CARBON DIOXIDE 26.5 mmol/L (21.0-32.0); CHLORIDE - SERUM 97 mmol/L (98-107); CKMB 0.3 U/L (0.0-3.6); CREATINE KINASE 34 UL (21-232); CREATININE - SERUM 1.1 mg/dL (0.6-1.3); GLUCOSE 86 mg/dL (74-106); MAGNESIUM - SERUM 1.9 mg/dL (1.8-2.4); POTASSIUM - SERUM 4.3 mmol/L (3.5-5.1); PROTEIN - SERUM 7.6 g/dL (6.4-8.2); SODIUM 135 mmol/L (136-145); UREA NITROGEN 19 mg/dL (7-18); eGFR NON AFRICAN AMERICAN 72 mL/min (90-120)
[2018-03-30 07:18] LABS: TROPONIN-I < 0.017 ng/mL (0.000-0.060)
[2018-03-30 08:50] VITALS: BP 109/68
[2018-03-30 12:03] VITALS: BP 103/61
[2018-03-30 12:41] VITALS: Ht 182.9 cm; Wt 94.5 kg
[2018-03-30 16:56] VITALS: BP 114/64
[2018-03-30 20:17] VITALS: BP 114/77
[2018-03-31 00:57] VITALS: BP 111/62
[2018-03-31 04:28] VITALS: BP 118/69
[2018-03-31 05:54] LABS: BASOPHILS 0.4 % (0-2); EOSINOPHILS 2.9 % (0-7); HEMATOCRIT 34.2 % (42.0-54.0); HEMOGLOBIN 11.9 g/dL (13.5-17.5); IMMATURE GRANULOCYTES 0.2 % (0-5); LYMPHOCYTES 28.4 % (15-50); MCH 30.4 pg (26.0-34.0); MCHC 34.8 g/dL (31.0-37.0); MCV 87.2 fL (80.0-100.0); MEAN PLATELET VOLUME 10.1 fL (7.4-10.4); MONOCYTES 18.9 % (2-11); NEUTROPHILS 49.2 % (40-80); PLATELET COUNT 214 10x3/uL (130-400); RBC 3.92 10x6/uL (4.20-6.10); RDW 15.6 % (11.5-14.5); WBC 4.8 10x3/uL (4.8-10.8)
[2018-03-31 06:30] LABS: ANION GAP 12.1 mmol/L (8-16); BILIRUBIN - TOTAL 0.8 mg/dL (0.2-1.3); CALCIUM 8.7 mg/dL (8.5-10.1); CARBON DIOXIDE 28.4 mmol/L (21.0-32.0); CREATININE - SERUM 1.1 mg/dL (0.6-1.3); MAGNESIUM - SERUM 1.9 mg/dL (1.8-2.4); PROTEIN - SERUM 7.5 g/dL (6.4-8.2)
[2018-03-31 06:33] LABS: POTASSIUM - SERUM 3.5 mmol/L (3.5-5.1)
[2018-03-31 09:01] VITALS: BP 129/61
[2018-03-31 13:30] VITALS: BP 105/66
[2018-03-31 20:33] VITALS: BP 133/68
[2018-04-01 01:35] VITALS: BP 108/65
[2018-04-01 04:57] LABS: BASOPHILS 0.6 % (0-2); EOSINOPHILS 3.3 % (0-7); HEMATOCRIT 34.6 % (42.0-54.0); HEMOGLOBIN 11.9 g/dL (13.5-17.5); LYMPHOCYTES 29.2 % (15-50); MCH 30.1 pg (26.0-34.0); MCHC 34.4 g/dL (31.0-37.0); MCV 87.6 fL (80.0-100.0); MEAN PLATELET VOLUME 9.9 fL (7.4-10.4); MONOCYTES 18.4 % (2-11); NEUTROPHILS 48.5 % (40-80); PLATELET COUNT 214 10x3/uL (130-400); RBC 3.95 10x6/uL (4.20-6.10); RDW 15.3 % (11.5-14.5); WBC 4.9 10x3/uL (4.8-10.8)
[2018-04-01 05:50] VITALS: BP 117/70
[2018-04-01 06:30] LABS: ANION GAP 11.6 mmol/L (8-16); BILIRUBIN - TOTAL 0.67 mg/dL (0.2-1.3); CALCIUM 8.9 mg/dL (8.5-10.1); CARBON DIOXIDE 31.5 mmol/L (21.0-32.0); CREATININE - SERUM 1.2 mg/dL (0.6-1.3); POTASSIUM - SERUM 4.1 mmol/L (3.5-5.1); PROTEIN - SERUM 7.8 g/dL (6.4-8.2)
[2018-04-01 08:38] VITALS: BP 110/73
[2018-04-01 11:21] VITALS: BP 106/64
[2018-04-01 16:34] VITALS: BP 114/77
[2018-04-01 20:02] VITALS: BP 127/61
[2018-04-02] VITALS: BP 109/59
[2018-04-02 04:00] VITALS: BP 112/63
[2018-04-02 06:07] LABS: BASOPHILS 0.4 % (0-2); EOSINOPHILS 3.2 % (0-7); HEMATOCRIT 33.9 % (42.0-54.0); HEMOGLOBIN 11.5 g/dL (13.5-17.5); IMMATURE GRANULOCYTES 0.2 % (0-5); LYMPHOCYTES 26.2 % (15-50); MCH 29.9 pg (26.0-34.0); MCHC 33.9 g/dL (31.0-37.0); MCV 88.1 fL (80.0-100.0); PLATELET COUNT 213 10x3/uL (130-400); RBC 3.85 10x6/uL (4.20-6.10); RDW 15.5 % (11.5-14.5)
[2018-04-02 06:43] LABS: BILIRUBIN - TOTAL 0.69 mg/dL (0.2-1.3); CALCIUM 9.1 mg/dL (8.5-10.1); CARBON DIOXIDE 32.1 mmol/L (21.0-32.0); CREATININE - SERUM 1.1 mg/dL (0.6-1.3); MAGNESIUM - SERUM 2.1 mg/dL (1.8-2.4); POTASSIUM - SERUM 4.1 mmol/L (3.5-5.1); PROTEIN - SERUM 7.7 g/dL (6.4-8.2)
[2018-04-02 08:15] VITALS: BP 114/58
[2018-04-02 11:21] VITALS: BP 105/47
[2018-04-02 15:19] VITALS: BP 132/65
[2018-04-02 20:00] VITALS: BP 118/60
[2018-04-03] VITALS (7 sets, daily range): BP systolic 114–188; BP diastolic 50–71
[2018-04-03 05:16] LABS: BASOPHILS 0.6 % (0-2); EOSINOPHILS 2.6 % (0-7); HEMATOCRIT 34.8 % (42.0-54.0); HEMOGLOBIN 12.1 g/dL (13.5-17.5); IMMATURE GRANULOCYTES 0.2 % (0-5); LYMPHOCYTES 26.7 % (15-50); MCH 30.6 pg (26.0-34.0); MCHC 34.8 g/dL (31.0-37.0); MCV 87.9 fL (80.0-100.0); MEAN PLATELET VOLUME 9.8 fL (7.4-10.4); MONOCYTES 15.7 % (2-11); NEUTROPHILS 54.2 % (40-80); PLATELET COUNT 214 10x3/uL (130-400); RBC 3.96 10x6/uL (4.20-6.10); RDW 15.5 % (11.5-14.5); WBC 4.9 10x3/uL (4.8-10.8)
[2018-04-03 05:37] LABS: ALBUMIN 3.3 g/dL (3.4-5.0); ANION GAP 10.8 mmol/L (8-16); BILIRUBIN - TOTAL 0.7 mg/dL (0.2-1.3); CALCIUM 9.1 mg/dL (8.5-10.1); CARBON DIOXIDE 33.3 mmol/L (21.0-32.0); CREATININE - SERUM 1.1 mg/dL (0.6-1.3); MAGNESIUM - SERUM 2.3 mg/dL (1.8-2.4); POTASSIUM - SERUM 4.1 mmol/L (3.5-5.1); PROTEIN - SERUM 8.1 g/dL (6.4-8.2)
[2018-04-04] VITALS: BP 109/59
[2018-04-04 04:00] VITALS: BP 119/66
[2018-04-04 06:13] LABS: BASOPHILS 0.6 % (0-2); EOSINOPHILS 3.2 % (0-7); HEMATOCRIT 35.1 % (42.0-54.0); HEMOGLOBIN 12.1 g/dL (13.5-17.5); IMMATURE GRANULOCYTES 0.2 % (0-5); MCH 30.6 pg (26.0-34.0); MCHC 34.5 g/dL (31.0-37.0); MCV 88.6 fL (80.0-100.0); MEAN PLATELET VOLUME 9.7 fL (7.4-10.4); MONOCYTES 13.4 % (2-11); NEUTROPHILS 52.6 % (40-80); PLATELET COUNT 195 10x3/uL (130-400); RBC 3.96 10x6/uL (4.20-6.10); RDW 15.4 % (11.5-14.5); WBC 4.7 10x3/uL (4.8-10.8)
[2018-04-04 07:06] LABS: ANION GAP 10.9 mmol/L (8-16); CALCIUM 9.3 mg/dL (8.5-10.1); CARBON DIOXIDE 33.2 mmol/L (21.0-32.0); CREATININE - SERUM 1.3 mg/dL (0.6-1.3); POTASSIUM - SERUM 4.1 mmol/L (3.5-5.1)
[2018-04-04 08:11] VITALS: BP 128/56
[2018-04-04 11:40] VITALS: BP 116/55
[2018-04-04 15:51] VITALS: BP 116/66
[2018-04-04 20:00] VITALS: BP 125/67
[2018-04-05] VITALS (7 sets, daily range): BP systolic 93–123; BP diastolic 48–71
[2018-04-05 05:52] LABS: BASOPHILS 0.6 % (0-2); EOSINOPHILS 3.8 % (0-7); HEMATOCRIT 33.8 % (42.0-54.0); HEMOGLOBIN 11.5 g/dL (13.5-17.5); LYMPHOCYTES 29.4 % (15-50); MCH 30.2 pg (26.0-34.0); MCV 88.7 fL (80.0-100.0); MEAN PLATELET VOLUME 9.7 fL (7.4-10.4); MONOCYTES 18.3 % (2-11); NEUTROPHILS 47.9 % (40-80); PLATELET COUNT 196 10x3/uL (130-400); RBC 3.81 10x6/uL (4.20-6.10); RDW 15.6 % (11.5-14.5); WBC 4.7 10x3/uL (4.8-10.8)
[2018-04-05 06:22] LABS: ANION GAP 9.7 mmol/L (8-16); CREATININE - SERUM 1.3 mg/dL (0.6-1.3); POTASSIUM - SERUM 3.7 mmol/L (3.5-5.1)
[2018-04-06 04:00] VITALS: BP 102/54
[2018-04-06 04:27] LABS: BASOPHILS 0.6 % (0-2); EOSINOPHILS 4.6 % (0-7); HEMATOCRIT 33.8 % (42.0-54.0); HEMOGLOBIN 11.6 g/dL (13.5-17.5); LYMPHOCYTES 27.1 % (15-50); MCH 30.5 pg (26.0-34.0); MCHC 34.3 g/dL (31.0-37.0); MCV 88.9 fL (80.0-100.0); MEAN PLATELET VOLUME 9.8 fL (7.4-10.4); MONOCYTES 17.2 % (2-11); NEUTROPHILS 50.5 % (40-80); PLATELET COUNT 190 10x3/uL (130-400); RDW 15.7 % (11.5-14.5)
[2018-04-06 04:46] LABS: ANION GAP 11.2 mmol/L (8-16); CALCIUM 9.2 mg/dL (8.5-10.1); CREATININE - SERUM 1.4 mg/dL (0.6-1.3); POTASSIUM - SERUM 4.2 mmol/L (3.5-5.1)
[2018-04-06 08:18] VITALS: BP 111/59
[2018-04-06] MEDS ORDERED: NICODERM C1 PATCH .1 TRANSDERM (10:17)
== END 2018-04-06 15:21 | disposition home or self-care (01) | DRG 292 ==
LOC: D.ER 12:03 → D.M2 14:32
PROVIDERS: Family Medicine; Internal Medicine Nephrology
DX: I11.0 Hypertensive heart disease with heart failure (principal); F17.203 Nicotine dependence unspecified, with withdrawal; N17.9 Acute kidney failure, unspecified; I50.43 Acute on chronic combined systolic (congestive) and diastolic (congestive) heart failure; E11.65 Type 2 diabetes mellitus with hyperglycemia; I48.2 Chronic atrial fibrillation; Z79.01 Long term (current) use of anticoagulants; J44.9 Chronic obstructive pulmonary disease, unspecified; I08.2 Rheumatic disorders of both aortic and tricuspid valves; F32.9 Major depressive disorder, single episode, unspecified; I42.9 Cardiomyopathy, unspecified; Z86.711 Personal history of pulmonary embolism

== ENCOUNTER 2018-06-19 13:02 | Emergency (ER) | payer BC ==
[~2018-06-19] VITALS: Ht 182.9 cm; Wt 95.5 kg
[~2018-06-19 13:02] MED LIST changes: +FUROSEMIDE40 MG PO; +K-DUR20 MEQ PO
[2018-06-19 13:10] VITALS: Ht 182.9 cm; Wt 95.5 kg
[2018-06-19 13:31] LABS: BASOPHILS 0.6 % (0-2); EOSINOPHILS 2.8 % (0-7); HEMATOCRIT 34.1 % (42.0-54.0); HEMOGLOBIN 11.6 g/dL (13.5-17.5); IMMATURE GRANULOCYTES 0.1 % (0-5); LYMPHOCYTES 24.2 % (15-50); MCV 88.1 fL (80.0-100.0); MEAN PLATELET VOLUME 9.7 fL (7.4-10.4); MONOCYTES 14.4 % (2-11); NEUTROPHILS 57.9 % (40-80); PLATELET COUNT 225 10x3/uL (130-400); RBC 3.87 10x6/uL (4.20-6.10); RDW 16.5 % (11.5-14.5); WBC 6.9 10x3/uL (4.8-10.8)
[2018-06-19 14:01] LABS: APTT 49.8 SECONDS (22.8-39.4); INR 2.41 (0.85-1.17); PROTIME 25.2 SECONDS (11.6-15.0)
[2018-06-19 14:18] LABS: ALBUMIN 3.2 g/dL (3.4-5.0); ALKALINE PHOSPHATASE 149 U/L (46-116); ALT (SGPT) 13 U/L (10-68); CALC OSMOLALITY 270 mosm/kg (275-300); CALCIUM 8.3 mg/dL (8.5-10.1); CARBON DIOXIDE 28.3 mmol/L (21.0-32.0); CHLORIDE - SERUM 101 mmol/L (98-107); CREATININE - SERUM 1.2 mg/dL (0.6-1.3); GLUCOSE 87 mg/dL (74-106); POTASSIUM - SERUM 4.2 mmol/L (3.5-5.1); PROTEIN - SERUM 8.2 g/dL (6.4-8.2); SODIUM 135 mmol/L (136-145); UREA NITROGEN 17 mg/dL (7-18); eGFR NON AFRICAN AMERICAN 65 mL/min (90-120)
[2018-06-19 14:33] LABS: CKMB 0.8 U/L (0.0-3.6); CREATINE KINASE 44 UL (21-232); MAGNESIUM - SERUM 2.1 mg/dL (1.8-2.4); PRO BNP 914 pg/mL (0-125); THYROID STIMULATING HORMONE 6.96 uIU/mL (0.36-3.74); TROPONIN-I < 0.017 ng/mL (0.000-0.060)
[2018-06-19 17:53] VITALS: BP 135/70
== END 2018-06-19 17:53 | disposition home or self-care (01) ==
LOC: D.ER 13:02
PROVIDERS: Emergency Medicine
DX: R60.9 Edema, unspecified (principal); D64.9 Anemia, unspecified; I50.9 Heart failure, unspecified; R06.00 Dyspnea, unspecified; E11.9 Type 2 diabetes mellitus without complications; I10 Essential (primary) hypertension; F17.200 Nicotine dependence, unspecified, uncomplicated

== ENCOUNTER 2018-07-01 12:38 | Inpatient (IN) | payer BC ==
[~2018-07-01] VITALS: Ht 182.9 cm; Wt 104.3 kg
--- NOTE | ~2018-07-01 | CN ---
PATIENT NAME:ASHLIE CALIX MEDICAL RECORD: [id number] : 53 LOCATION:. D.2138 ADMIT DATE: 07/01/18 ACCOUNT: [id number] CONSULTING PHYSICIAN: PETRA IRVIN MD REFERRING PHYSICIAN: SUSANA RONQUILLO MD DATE OF CONSULTATION: 07/02/2018 CARDIOLOGY CONSULT DIAGNOSES: 1. Shortness of breath, dyspnea on exertion. 2. Congestive heart failure, chronic systolic dysfunction. 3. Cardiomyopathy. 4. Atrial fibrillation. 5. Hypertension. HISTORY OF PRESENT ILLNESS: Mr. Calix has had 3 weeks of increasing episodes of shortness of breath. He does have a history of atrial fibrillation. He is found now to be in atrial fibrillation. He has not had any chest pain or chest discomfort. He has mild pulmonary edema, which is clearing with diuretic therapy. His heart rate is controlled in the 80s to 90s. He is on sotalol 80 mg b.i.d. as well as metoprolol 25 mg b.i.d. and Xarelto. PHYSICAL EXAMINATION: GENERAL APPEARANCE: Well-nourished, well-developed, appears stated age. Level of distress, comfortable. PSYCHIATRIC: Mental status, alert, normal affect. Orientation, oriented to time, place and person. EYES: Lids and conjunctiva, noninjected. No discharge, no pallor. ENT: Lips, teeth, gums, normal dentition. Oropharynx, no cyanosis, no pallor. NECK: Carotid arteries, bilateral normal upstroke, no bruits, no thrills. JUGULAR VEINS: No jugular venous pressure or distention. CERVICAL LYMPH NODES: Nontender, nonenlarged. THYROID: Not enlarged. Nontender. No nodules. LUNGS: Respiratory effort, unlabored. CHEST: Normal curvature. No thoracic deformity. No chest wall tenderness. Percussion, resonant. Auscultation, clear. No wheezes, no rales, no rhonchi. CARDIOVASCULAR: Irregularly irregular in atrial fibrillation. EXTREMITIES: No cyanosis, no edema. Peripheral pulses, full and equal in all extremities, except as noted. No bruits appreciated. ABDOMEN: Soft, nondistended. Normal aorta. No bruit. Nontender. No masses. Liver, nontender, no hepatomegaly. Spleen, nontender, no splenomegaly. MUSCULOSKELETAL: No joint tenderness. No joint swelling. No erythema. NEUROLOGICAL: Normal gait, normal strength, normal tone. SKIN: Warm and dry. OVERALL IMPRESSION: Atrial fibrillation is the reason for his decompensation. We will increase the sotalol, discontinue the metoprolol. If this does not get him back into rhythm would consider DC cardioversion. TRANSINT:[id number] Voice Confirmation ID: [id number] DOCUMENT ID: [id number] CONSULT REPORT [id number] ASHLIE CALIX, PETRA DAIGLE at 1950 CC: [id number] DICTATION DATE: 07/02/18 1049 CANDY PACKER: 07/02/18 1101 DIS IN 07/06/18 [facility] [address] [place] [address]
[2018-07-01] MEDS ORDERED: ALDACTONE50 MG PO (12:47)
[2018-07-01] MEDS ORDERED: BUMEX2 MG PO (12:47)
[2018-07-01 13:11] LABS: BASOPHILS 0.7 % (0-2); EOSINOPHILS 2.9 % (0-7); HEMATOCRIT 33.8 % (42.0-54.0); HEMOGLOBIN 11.7 g/dL (13.5-17.5); IMMATURE GRANULOCYTES 0.2 % (0-5); LYMPHOCYTES 25.1 % (15-50); MCH 30.4 pg (26.0-34.0); MCHC 34.6 g/dL (31.0-37.0); MCV 87.8 fL (80.0-100.0); MEAN PLATELET VOLUME 9.3 fL (7.4-10.4); MONOCYTES 15.2 % (2-11); NEUTROPHILS 55.9 % (40-80); PLATELET COUNT 221 10x3/uL (130-400); RBC 3.85 10x6/uL (4.20-6.10); RDW 15.8 % (11.5-14.5); WBC 5.5 10x3/uL (4.8-10.8)
[2018-07-01 13:25] LABS: ALBUMIN 3.2 g/dL (3.4-5.0); ALKALINE PHOSPHATASE 140 U/L (46-116); ALT (SGPT) 9 U/L (10-68); BILIRUBIN - TOTAL 1.27 mg/dL (0.2-1.3); CALC OSMOLALITY 270 mosm/kg (275-300); CALCIUM 8.7 mg/dL (8.5-10.1); CARBON DIOXIDE 31.1 mmol/L (21.0-32.0); CHLORIDE - SERUM 99 mmol/L (98-107); CREATININE - SERUM 1.6 mg/dL (0.6-1.3); GLUCOSE 98 mg/dL (74-106); PROTEIN - SERUM 8.1 g/dL (6.4-8.2); SODIUM 134 mmol/L (136-145); UREA NITROGEN 22 mg/dL (7-18); eGFR NON AFRICAN AMERICAN 46 mL/min (90-120)
[2018-07-01 13:37] LABS: AMYLASE - SERUM 217 U/L (25-115); CKMB 0.6 U/L (0.0-3.6); CREATINE KINASE 46 UL (21-232); INR 2.45 (0.85-1.17); LIPASE 289 U/L (73-393); PRO BNP 1724 pg/mL (0-125); PROTIME 25.9 SECONDS (11.6-15.0); TROPONIN-I < 0.017 ng/mL (0.000-0.060)
[2018-07-01 13:38] LABS: APTT 50.9 SECONDS (22.8-39.4)
[2018-07-01 17:00] VITALS: BP 135/69
[2018-07-01 17:54] VITALS: BMI 31.8
[2018-07-01 21:20] VITALS: BP 121/76
[2018-07-02 02:00] VITALS: BP 109/67
[2018-07-02 06:00] VITALS: BP 113/47
[2018-07-02 06:04] LABS: BASOPHILS 0 % (0-2); EOSINOPHILS 0 % (0-7); HEMATOCRIT 32.9 % (42.0-54.0); HEMOGLOBIN 11.5 g/dL (13.5-17.5); IMMATURE GRANULOCYTES 0.2 % (0-5); MCH 30.4 pg (26.0-34.0); MEAN PLATELET VOLUME 9.9 fL (7.4-10.4); NEUTROPHILS 83.8 % (40-80); PLATELET COUNT 238 10x3/uL (130-400); RBC 3.78 10x6/uL (4.20-6.10); RDW 15.7 % (11.5-14.5); WBC 5.4 10x3/uL (4.8-10.8)
[2018-07-02 08:00] VITALS: BP 124/66
[2018-07-02 12:17] VITALS: Ht 182.9 cm; Wt 104.3 kg
[2018-07-02 16:38] LABS: T4 THYROXIN - FREE 1.1 ng/dL (0.76-1.46); THYROID STIMULATING HORMONE 3.37 uIU/mL (0.36-3.74)
[2018-07-02 17:22] VITALS: BP 104/56
[2018-07-02 17:46] LABS: APPEARANCE CLEAR (CLEAR); BILIRUBIN NEGATIVE (NEGATIVE); COLOR YELLOW (YELLOW); GLUCOSE NEGATIVE (NEGATIVE); KETONE NEGATIVE (NEGATIVE); NITRITE NEGATIVE (NEGATIVE); PROTEIN NEGATIVE (NEGATIVE); UROBILINOGEN NORMAL (NORMAL)
[2018-07-02 20:00] VITALS: BP 106/50
[2018-07-03] VITALS (7 sets, daily range): BP systolic 94–120; BP diastolic 53–74
[2018-07-03 05:05] LABS: BASOPHILS 0 % (0-2); EOSINOPHILS 0 % (0-7); HEMATOCRIT 31.5 % (42.0-54.0); HEMOGLOBIN 10.8 g/dL (13.5-17.5); IMMATURE GRANULOCYTES 0.3 % (0-5); LYMPHOCYTES 5.8 % (15-50); MCH 29.8 pg (26.0-34.0); MCHC 34.3 g/dL (31.0-37.0); MEAN PLATELET VOLUME 9.7 fL (7.4-10.4); NEUTROPHILS 88.9 % (40-80); PLATELET COUNT 238 10x3/uL (130-400); RBC 3.62 10x6/uL (4.20-6.10); RDW 15.8 % (11.5-14.5)
[2018-07-03 05:07] LABS: WBC 13.9 10x3/uL (4.8-10.8)
[2018-07-03 05:12] LABS: ANION GAP 13.2 mmol/L (8-16); CALCIUM 8.1 mg/dL (8.5-10.1); CARBON DIOXIDE 27.7 mmol/L (21.0-32.0); CREATININE - SERUM 1.6 mg/dL (0.6-1.3); POTASSIUM - SERUM 3.9 mmol/L (3.5-5.1)
[2018-07-04 04:00] VITALS: BP 105/55
[2018-07-04 05:44] LABS: BASOPHILS 0.1 % (0-2); EOSINOPHILS 0.1 % (0-7); HEMATOCRIT 33.1 % (42.0-54.0); HEMOGLOBIN 11.6 g/dL (13.5-17.5); IMMATURE GRANULOCYTES 0.2 % (0-5); MCH 30.5 pg (26.0-34.0); MCV 87.1 fL (80.0-100.0); MEAN PLATELET VOLUME 9.8 fL (7.4-10.4); MONOCYTES 7.7 % (2-11); NEUTROPHILS 78.9 % (40-80); PLATELET COUNT 256 10x3/uL (130-400); RDW 16.1 % (11.5-14.5); WBC 11.2 10x3/uL (4.8-10.8)
[2018-07-04 06:04] LABS: ANION GAP 11.3 mmol/L (8-16); CALCIUM 8.1 mg/dL (8.5-10.1); CARBON DIOXIDE 31.8 mmol/L (21.0-32.0); CREATININE - SERUM 1.8 mg/dL (0.6-1.3); POTASSIUM - SERUM 4.1 mmol/L (3.5-5.1)
[2018-07-04 11:00] VITALS: BP 100/57
[2018-07-04 15:50] VITALS: BP 94/50
[2018-07-04 20:14] VITALS: BP 102/61
[2018-07-05 00:19] VITALS: BP 122/72
[2018-07-05 04:00] VITALS: BP 118/70
[2018-07-05 06:26] LABS: BASOPHILS 0 % (0-2); EOSINOPHILS 0.9 % (0-7); HEMATOCRIT 32.7 % (42.0-54.0); HEMOGLOBIN 11.4 g/dL (13.5-17.5); IMMATURE GRANULOCYTES 0.2 % (0-5); LYMPHOCYTES 20.7 % (15-50); MCH 30.3 pg (26.0-34.0); MCHC 34.9 g/dL (31.0-37.0); MONOCYTES 14.6 % (2-11); NEUTROPHILS 63.6 % (40-80); PLATELET COUNT 230 10x3/uL (130-400); RBC 3.76 10x6/uL (4.20-6.10); RDW 15.7 % (11.5-14.5)
[2018-07-05 06:28] LABS: WBC 6.7 10x3/uL (4.8-10.8)
[2018-07-05 07:09] LABS: ANION GAP 10.8 mmol/L (8-16); CALCIUM 8.2 mg/dL (8.5-10.1); CARBON DIOXIDE 29.4 mmol/L (21.0-32.0); CREATININE - SERUM 1.6 mg/dL (0.6-1.3); POTASSIUM - SERUM 4.2 mmol/L (3.5-5.1)
[2018-07-05 08:00] VITALS: BP 118/72
[2018-07-05 10:50] VITALS: BP 106/48
[2018-07-05 15:11] VITALS: BP 109/68
[2018-07-06] VITALS: BP 107/55
[2018-07-06 04:00] VITALS: BP 112/62
[2018-07-06 06:02] LABS: BASOPHILS 0.2 % (0-2); EOSINOPHILS 2.9 % (0-7); HEMATOCRIT 34.2 % (42.0-54.0); HEMOGLOBIN 11.7 g/dL (13.5-17.5); IMMATURE GRANULOCYTES 0.3 % (0-5); LYMPHOCYTES 24.4 % (15-50); MCH 30.1 pg (26.0-34.0); MCHC 34.2 g/dL (31.0-37.0); MCV 87.9 fL (80.0-100.0); MEAN PLATELET VOLUME 10.1 fL (7.4-10.4); MONOCYTES 14.5 % (2-11); NEUTROPHILS 57.7 % (40-80); PLATELET COUNT 251 10x3/uL (130-400); RBC 3.89 10x6/uL (4.20-6.10); WBC 5.9 10x3/uL (4.8-10.8)
[2018-07-06 06:40] LABS: ANION GAP 11.4 mmol/L (8-16); CALCIUM 8.6 mg/dL (8.5-10.1); CARBON DIOXIDE 28.5 mmol/L (21.0-32.0); CREATININE - SERUM 1.5 mg/dL (0.6-1.3); POTASSIUM - SERUM 3.9 mmol/L (3.5-5.1)
[2018-07-06 07:46] VITALS: BP 108/55
[2018-07-06 11:26] VITALS: BP 109/57
[2018-07-06] MEDS ORDERED: BETAPACE 120 M120 MG PO (14:17)
== END 2018-07-06 17:20 | disposition home or self-care (01) | DRG 292 ==
LOC: D.ER 12:38 → D.EDHOLD 14:52 → D.M2 14:52
PROVIDERS: Family Medicine; Internal Medicine Nephrology
DX: I11.0 Hypertensive heart disease with heart failure (principal); F17.213 Nicotine dependence, cigarettes, with withdrawal; N17.9 Acute kidney failure, unspecified; I50.43 Acute on chronic combined systolic (congestive) and diastolic (congestive) heart failure; I42.9 Cardiomyopathy, unspecified; F32.9 Major depressive disorder, single episode, unspecified; E78.5 Hyperlipidemia, unspecified; I25.10 Atherosclerotic heart disease of native coronary artery without angina pectoris; J44.9 Chronic obstructive pulmonary disease, unspecified; E11.42 Type 2 diabetes mellitus with diabetic polyneuropathy; D64.9 Anemia, unspecified; I48.2 Chronic atrial fibrillation

== ENCOUNTER → 2018-11-03 13:05 | Outpatient (CLI) | payer MEDICAID ==
[2018-07-02 12:17] VITALS: BMI 31.8
[~2018-11-03 13:05] MED LIST changes: +ALDACTONE50 MG PO; +BETAPACE 120 M120 MG PO
== END | disposition home or self-care (01) ==
LOC: D.US 13:05
DX: R92.8 Other abnormal and inconclusive findings on diagnostic imaging of breast (principal)

== ENCOUNTER → 2018-12-07 16:59 | Outpatient (CLI) | payer MEDICAID ==
[2018-07-02 12:17] VITALS: BMI 31.8
[2018-12-07 17:19] LABS: ANION GAP 12.1 mmol/L (8-16); CALCIUM 8.8 mg/dL (8.5-10.1); CARBON DIOXIDE 31.8 mmol/L (21.0-32.0); CREATININE - SERUM 1.7 mg/dL (0.6-1.3); POTASSIUM - SERUM 3.9 mmol/L (3.5-5.1)
== END | disposition home or self-care (01) ==
LOC: D.LABREF 16:59
PROVIDERS: Internal Medicine Cardiovascular Disease
DX: I48.2 Chronic atrial fibrillation (principal)

== ENCOUNTER 2020-03-20 07:00 | Day surgery (SDC) | payer MEDICARE ==
[~2020-03-20] VITALS: Ht 182.9 cm; Wt 108.2 kg
--- NOTE | ~2020-03-20 | OP ---
PATIENT NAME: ASHLIE CALIX MEDICAL RECORD: [id number] :53 LOCATION:[facility] ADMISSION DATE: SURGEON: BROOKE VIDES MD DATE OF OPERATION: 03/20/2020 PROCEDURE: Colonoscopy with biopsy, colonoscopy with polypectomy, EGD with biopsy. FRUIT DRYER: Brooke Vides MD SCOPE: An Olympus video colonoscope and an Olympus video gastroscope. MEDICATIONS: Provided per TIVA anesthesia. For both procedures, the patient received 300 mg IV push and O2 4 liters. HISTORY AND PHYSICAL: Mr. Calix is a very pleasant 64-year-old gentleman who was seen in clinic, 03/13/2020, referred by Dr. Lynette Serrano. He presents for evaluation of anemia as well as guaiac positive stool noted, 02/11/2020, by his primary care physician. On 03/11/2020, the patient's hemoglobin was noted to be 9.6 and 30. The patient is completely asymptomatic. He has no nausea, vomiting, hematemesis, melenic stool, hematochezia. No abdominal pain, no unexplained weight loss. He is having a soft brown normal stool on a regular basis. The patient has never had an EGD or colonoscopy in the past. He has a negative family history of colon cancer. He is consented to a colonoscopy and if no reason is found for his anemia and blood loss, we will proceed with an EGD. COLONOSCOPY FINDINGS: Informed consent was given. The patient was made comfortable with the above medications. After reaching an adequate level of sedation by slow IV push, the patient was placed on his left side. The rectal exam revealed good sphincter tone. No fissures or fistulas were appreciated. No external skin tags were seen. The colonoscope was advanced to the cecum where the ileocecal valve and appendiceal orifice were identified. The prep was noted to be good. On withdrawal of the scope, mucosa was carefully inspected. The patient was seen to have an 0.5 cm polyp at 50 cm within the colon at the splenic flexure and this was removed with hot biopsy forcep technique. On additional withdrawal of the scope, mucosa was felt to be normal until reaching the rectum, where minimal inflammation was appreciated and a biopsy was obtained. The patient also was noted to have 2 polyps within the rectal vault, both approximately 0.5-1 cm in size and these both were removed with hot biopsy forceps technique. On retroflexion and final withdrawal of the scope, mild internal hemorrhoids were appreciated. IMPRESSION: 1. Good prep. 2. Cecum identified. 3. Small 0.5 cm polyp seen in the splenic flexure at 50 cm, removed with hot biopsy forcep technique. 4. Two 0.5-1 cm polyps in the rectal vault, both benign in appearance and both removed with hot biopsy forcep technique. 5. Very mild internal hemorrhoids. PLAN: 1. High-fiber diet. 2. No anti-inflammatory drugs for 14 days. OPERATIVE REPORT [id number] ASHLIE CALIX EGD WITH BIOPSY: After completion of the colonoscopy part of the procedure, the patient was again positioned on his left side and medications were adjusted for his comfort and safety. The colonoscope was advanced via the mouth through the esophagus down to the distal esophageal area and at this area some very mild inflammation was appreciated with a few erosions and biopsies were obtained. We then advanced into the gastric area and upon retroflexion, the cardia and fundus were noted with mild inflammation only. Proceeding to the stomach body, only mild inflammation was seen and we then went to the antral area where multiple erosions were noted. No ulcers and biopsies were obtained for histopathology and looking for Helicobacter pylori. The duodenal bulb had mild inflammation as well as the second part of the duodenum and bile was present. Biopsies were taken of this mild inflammation. The scope was then withdrawn. IMPRESSION: 1. Distal esophageal erosions, biopsies taken and also an additional biopsy in the mid esophageal area looking for the possibility of eosinophilic esophagitis. 2. Gastric erosions without bleeding or ulcerations at the antral area, biopsied. 3. Mild duodenitis in the bulb and second portion, biopsied. PLAN: 1. We will start the patient on pantoprazole at a dose of 40 mg p.o. every morning. 2. The patient is to stop tobacco products. 3. Reflux precautions should be followed stringently, both dietary and positional. No chocolate, tomato, citrus, caffeine, fatty food, peppermint, tobacco or alcohol. The patient should not eat late at night and sit up for 2 hours after every meal. 4. Caution with anti-inflammatory drugs, none for the next 14 days. 5. We will ask Dr. Harris to check the patient's hemoglobin and hematocrit in 30 days. If he is still anemic, we would then recommend a small bowel follow through to be thorough. TRANSINT:[id number] Voice Confirmation ID: [id number] DOCUMENT ID: [id number] BROOKE VIDES MD CC: SUDHAKAR CALIXTO M.D. and LYNETTE HARRIS [id number] DICTATION DATE: 03/20/20 1042 MEDICATION CARE MANAGER: 03/20/20 1151 [facility] 03/20/20 [place] [address] [place] [address]
[2020-03-20 07:30] LABS: HEMATOCRIT 30.5 % (42.0-54.0); HEMOGLOBIN 9.9 g/dL (13.5-17.5); MCH 25.7 pg (26.0-34.0); MCHC 32.5 g/dL (31.0-37.0); MCV 79.2 fL (80.0-100.0); MEAN PLATELET VOLUME 9.3 fL (7.4-10.4); RBC 3.85 10x6/uL (4.20-6.10); WBC 7.3 10x3/uL (4.8-10.8)
[2020-03-20 07:33] LABS: ANION GAP 9.9 mmol/L (8-16); CALCIUM 9.2 mg/dL (8.5-10.1); CARBON DIOXIDE 29.5 mmol/L (21.0-32.0); CREATININE - SERUM 1.8 mg/dL (0.6-1.3); POTASSIUM - SERUM 4.4 mmol/L (3.5-5.1)
[2020-03-20] MEDS ORDERED: K-DUR20 MEQ PO (07:50)
[2020-03-20] MEDS ORDERED: ENTRESTO 49 MG1 EACH PO (07:50)
[2020-03-20 07:55] LABS: APTT 40.4 SECONDS (22.8-39.4); INR 0.99 (0.85-1.17); PROTIME 13.1 SECONDS (11.6-15.0)
[2020-03-20 08:17] VITALS: BP 120/41; Ht 182.9 cm; Wt 108.2 kg
--- NOTE | 2020-03-20 11:32 | NUR ---
1126 DC'D IV. CATHETER TIP INTACT. NO BLEEDING AT SITE. BANDAID APPLIED.
== END 2020-03-20 11:34 | disposition home or self-care (01) ==
LOC: D.OPS 07:00
PROVIDERS: Anesthesiology; ATTEND Internal Medicine Gastroenterology
DX: D64.9 Anemia, unspecified (principal); R19.5 Other fecal abnormalities; K63.5 Polyp of colon; K62.1 Rectal polyp; I50.9 Heart failure, unspecified; E11.9 Type 2 diabetes mellitus without complications; R01.1 Cardiac murmur, unspecified; Z72.0 Tobacco use

== ENCOUNTER 2020-05-09 15:11 | Inpatient (IN) | payer MEDICARE ==
[~2020-05-09] VITALS: Ht 182.9 cm; Wt 77.3 kg
[~2020-05-09 15:11] MED LIST changes: +ENTRESTO 49 MG1 EACH PO
[2020-05-09 15:44] LABS: HEMATOCRIT 25.4 % (42.0-54.0); HEMOGLOBIN 8.2 g/dL (13.5-17.5); LYMPHOCYTES 24.7 % (15-50); MCH 23.9 pg (26.0-34.0); MCHC 32.3 g/dL (31.0-37.0); MCV 74.1 fL (80.0-100.0); PLATELET COUNT 252 10x3/uL (130-400); RBC 3.43 10x6/uL (4.20-6.10); RDW 16.3 % (11.5-14.5); WBC 6.2 10x3/uL (4.8-10.8)
--- NOTE | 2020-05-09 16:00 | NUR ---
TRIAGE CHARTED ON WRONG PT
[2020-05-09 16:07] LABS: APTT 52.6 SECONDS (22.8-39.4); INR 1.68 (0.85-1.17); PROTIME 19.6 SECONDS (11.6-15.0)
[2020-05-09 16:08] LABS: D-DIMER-QUANTITATIVE < 0.27 ug/mLFEU (0.20-0.54)
[2020-05-09 16:23] LABS: ALBUMIN 3.5 g/dL (3.4-5.0); ALKALINE PHOSPHATASE 122 U/L (30-120); ALT (SGPT) 7 U/L (10-68); BILIRUBIN - TOTAL 0.63 mg/dL (0.2-1.3); CALCIUM 8.5 mg/dL (8.5-10.1); CARBON DIOXIDE 27.9 mmol/L (21.0-32.0); CREATINE KINASE 44 UL (21-232); GLUCOSE 119 mg/dL (74-106); POTASSIUM - SERUM 4.6 mmol/L (3.5-5.1); PRO BNP 963 pg/mL (0-125); PROTEIN - SERUM 7.3 g/dL (6.4-8.2); UREA NITROGEN 23 mg/dL (7-18); eGFR NON AFRICAN AMERICAN 36 mL/min (90-120)
[2020-05-09 16:31] LABS: CALC OSMOLALITY 237 mosm/kg (275-300); SODIUM 115 mmol/L (136-145)
[2020-05-09 16:32] LABS: CHLORIDE - SERUM 84 mmol/L (98-107); TROPONIN-I < 0.017 ng/mL (0.000-0.060)
[2020-05-09 18:36] VITALS: BP 134/52
--- NOTE | 2020-05-09 18:42 | NUR ---
STOOL POSITIVE FOR OCCULT BLOOD ADVISED MYRA REESE.
[2020-05-09 19:50] VITALS: BP 115/71
--- NOTE | 2020-05-09 20:05 | NUR ---
BEGAN BLOOD INFUSION, CALL LIGHT WITHIN REACH, S/S EXPLAINED FOR A REACTION, PATIENT VERBALIZED UNDERSTANDING.
--- NOTE | 2020-05-09 22:07 | NUR ---
REPORT TO APRIL @[phone]
[2020-05-09 22:16] LABS: HEMATOCRIT 26.6 % (42.0-54.0); HEMOGLOBIN 8.8 g/dL (13.5-17.5)
[2020-05-09] MEDS ORDERED: PROTONIX40 MG PO (23:04)
[2020-05-10] VITALS: BP 152/58
[2020-05-10 02:51] VITALS: Ht 182.9 cm; Wt 77.3 kg
[2020-05-10 05:11] LABS: INR 1.43 (0.85-1.17); PROTIME 17.3 SECONDS (11.6-15.0)
[2020-05-10 05:12] LABS: APTT 45.8 SECONDS (22.8-39.4)
[2020-05-10 05:19] LABS: BASOPHILS 0.4 % (0-2); HEMATOCRIT 24.8 % (42.0-54.0); HEMOGLOBIN 8.2 g/dL (13.5-17.5); LYMPHOCYTES 28.1 % (15-50); MCH 24.5 pg (26.0-34.0); MCHC 33.1 g/dL (31.0-37.0); MEAN PLATELET VOLUME 9.2 fL (7.4-10.4); MONOCYTES 13.8 % (2-11); NEUTROPHILS 56.7 % (40-80); PLATELET COUNT 216 10x3/uL (130-400); RBC 3.35 10x6/uL (4.20-6.10); RDW 16.5 % (11.5-14.5); WBC 5.1 10x3/uL (4.8-10.8)
[2020-05-10 05:42] LABS: ALBUMIN 3.2 g/dL (3.4-5.0); ALKALINE PHOSPHATASE 113 U/L (30-120); ALT (SGPT) 7 U/L (10-68); BILIRUBIN - TOTAL 1.59 mg/dL (0.2-1.3); CALC OSMOLALITY 251 mosm/kg (275-300); CALCIUM 8.3 mg/dL (8.5-10.1); CARBON DIOXIDE 28.2 mmol/L (21.0-32.0); CHLORIDE - SERUM 89 mmol/L (98-107); CKMB 0.7 U/L (0.0-3.6); CREATININE - SERUM 1.9 mg/dL (0.6-1.3); FERRITIN 19 ng/mL (3-244); GLUCOSE 94 mg/dL (74-106); MAGNESIUM - SERUM 2.3 mg/dL (1.8-2.4); PRO BNP 852 pg/mL (0-125); PROTEIN - SERUM 6.8 g/dL (6.4-8.2); SODIUM 123 mmol/L (136-145); THYROID STIMULATING HORMONE 6.46 uIU/mL (0.36-3.74); UREA NITROGEN 23 mg/dL (7-18); eGFR NON AFRICAN AMERICAN 38 mL/min (90-120)
[2020-05-10 05:52] LABS: % SATURATION 68 % (15-55); IRON 253 ug/dl (35-150); TOTAL IRON BIND CAPACITY 371 ug/dl (260-445); UNSAT IRON BIND CAPACITY 118 ug/dl (150-375)
[2020-05-10 09:00] VITALS: BP 117/59
[2020-05-10 11:26] LABS: HEMATOCRIT 26.9 % (42.0-54.0); HEMOGLOBIN 8.6 g/dL (13.5-17.5)
--- NOTE | 2020-05-10 14:15 | NUR ---
NEW BAG OF IV FLUIDS HUNG AT THIS TIME. PT RESTING COMFORTABLY IN BED, DENIES ANY NEEDS AT THIS TIME. CALL LIGHT IN REACH, NAD NOTED,W ILL CONTINUE TO MONITOR.
[2020-05-10] MEDS ORDERED: XARELTO10 MG PO (16:47)
[2020-05-10 16:56] LABS: HEMATOCRIT 25.8 % (42.0-54.0); HEMOGLOBIN 8.4 g/dL (13.5-17.5)
--- NOTE | 2020-05-10 17:12 | NUR ---
CALLED [facility] TO ARYAN TOMPKINS, AND SHE STATED TO CALL DR. DACOSTA TO MAKE SURE PT CAN BE D/C. DR. DACOSTA PAGED, WAITING DEMAND MANAGER BACK.
--- NOTE | 2020-05-10 18:05 | NUR ---
PROVIDED VERBAL AND WRITTEN DISCHARGE TEACHING TO PT, WHO VERBALIZED UNDERSTANDING REGARDING TEACHING. D/C LT HAND IV WITH CATHETER TIP INTACT. HEART MONITOR REMOVED AND TAKEN TO MILITARY PAY CLERK. PT WILL NOTIFY WHEN RIDE GETS HERE.
--- NOTE | 2020-05-10 18:43 | NUR ---
PT LEFT UNIT VIA WHEELCHAIR, WITH ALL BELONGINGS, NAD NOTED.
== END 2020-05-10 18:43 | disposition home or self-care (01) | DRG 378 ==
LOC: D.ER 15:11 → D.M2 18:47
PROVIDERS: Family Medicine; ADMIT Family Medicine Adult Medicine; ATTEND Family Medicine Adult Medicine
DX: K92.2 Gastrointestinal hemorrhage, unspecified (principal); D62 Acute posthemorrhagic anemia; N17.9 Acute kidney failure, unspecified; I50.42 Chronic combined systolic (congestive) and diastolic (congestive) heart failure; I48.20 Chronic atrial fibrillation, unspecified; F17.203 Nicotine dependence unspecified, with withdrawal; I13.0 Hypertensive heart and chronic kidney disease with heart failure and stage 1 through stage 4 chronic kidney disease, or unspecified chronic kidney disease; E87.1 Hypo-osmolality and hyponatremia; D50.9 Iron deficiency anemia, unspecified; E11.65 Type 2 diabetes mellitus with hyperglycemia; E11.40 Type 2 diabetes mellitus with diabetic neuropathy, unspecified; Z79.01 Long term (current) use of anticoagulants; F32.9 Major depressive disorder, single episode, unspecified; E11.22 Type 2 diabetes mellitus with diabetic chronic kidney disease; N18.3 Chronic kidney disease, stage 3 (moderate)